=== PATIENT | female | born 2000 | race Caucasian/White ===

== ENCOUNTER → 2020-05-13 | Outpatient (CLI) | payer BC, OTHER ==
[2020-05-13 12:28] LABS: HEMATOCRIT 38.5 % (36.0-47.0); MEAN CORPUSCULAR HEMOGLOBIN 28.5 pg (27.0-33.4); MEAN CORPUSCULAR HGB CONC 33.8 g/dL (32.0-36.0); MEAN CORPUSCULAR VOLUME 84 fl (80-97); PLATELET COUNT 295 10^3/uL (150-450); RED BLOOD COUNT 4.58 10^6/uL (3.72-5.28); RED CELL DISTRIBUTION WIDTH 12.9 % (11.5-14.0); WHITE BLOOD COUNT 5.4 10^3/uL (4.0-10.5)
[2020-05-13 12:54] LABS: ANION GAP 8 (5-19); BLOOD UREA NITROGEN 10 mg/dL (7-20); CALCIUM 9.7 mg/dL (8.4-10.2); CARBON DIOXIDE 27 mmol/L (22-30); CHLORIDE 103 mmol/L (98-107); GLUCOSE 96 mg/dL (75-110); POTASSIUM 4.5 mmol/L (3.6-5.0)
== END ==
LOC: OD 11:43
PROVIDERS: ATTEND Physician Assistant
DX: R00.2 Palpitations (principal); R94.6 Abnormal results of thyroid function studies
CPT/HCPCS: 36415; 80048; 83735; 84443; 85027

== ENCOUNTER → 2020-06-25 | Outpatient (CLI) | payer BC, OTHER | LOC: OD 10:52 | PROVIDERS: ATTEND Physician Assistant | DX: E83.42 Hypomagnesemia (principal) | CPT/HCPCS: 36415; 83735 ==